=== PATIENT | female | born 1990 | race American Indian/Alaskan Native ===

== ENCOUNTER 2019-04-03 07:01 | Emergency (ER) | payer OTHER ==
[2019-04-03 07:25] VITALS: BP 121/95
[2019-04-03] MEDS ORDERED: HYDROcodone/ACETAMINOPHEN 5-325 MG TAB PO ONE (10:17)
[2019-04-03] MEDS ORDERED: IBUPROFEN 800 MG TAB PO ONE (10:17)
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
== END 2019-04-03 12:16 | disposition home or self-care (01) ==
LOC: ED 07:01
DX: S80.11XA Contusion of right lower leg, initial encounter (principal); V49.49XA Driver injured in collision with other motor vehicles in traffic accident, initial encounter; Y93.89 Activity, other specified; Y92.488 Other paved roadways as the place of occurrence of the external cause; Y99.8 Other external cause status
CPT/HCPCS: 99283

== ENCOUNTER 2019-05-12 15:50 | Emergency (ER) | payer OTHER ==
--- NOTE | 2019-05-12 18:05 | XRay Report ---
CHEST 2 VIEWS INDICATION / CLINICAL INFORMATION: MAIN: cough; Pt. c/o body aches, chills, NOEL and cough. X 1 DAY. COMPARISON: None available. FINDINGS: SUPPORT DEVICES: None. HEART / MEDIASTINUM: No significant abnormality. LUNGS / PLEURA: No significant pulmonary or pleural abnormality. No pneumothorax. ADDITIONAL FINDINGS: No significant additional findings. IMPRESSION: No significant abnormality Signer Name: Herbie Land MD FACMonica Signed: 05/12/2019 6:01 PM Workstation Name: [id number]
[2019-05-12] MEDS ORDERED: ONDANSETRON 4 MG/2 ML INJ IV ONE (20:42)
[2019-05-12] MEDS ORDERED: SODIUM CHLORIDE 0.9% 1000 ML 1,000 ML IV ONE ×2 (20:42→22:05)
[2019-05-12 21:28] LABS: Basophils % (Auto) 0.2 % (0.0-1.8); Eosinophils # (Auto) 0.1 K/mm3 (0.0-0.4); Eosinophils % (Auto) 0.4 % (0.0-4.3); Hematocrit 37.3 % (30.3-42.9); Hemoglobin 12.5 gm/dl (10.1-14.3); Lymphocytes # (Auto) 2.5 K/mm3 (1.2-5.4); Lymphocytes % (Auto) 13.3 % (13.4-35.0); Mean Corpuscular HGB Conc 34 % (30-34); Mean Corpuscular Volume 76 fl (79-97); Monocytes % (Auto) 5.6 % (0.0-7.3); Platelet Count 191 K/mm3 (140-440); Red Blood Count 4.93 M/mm3 (3.65-5.03); Red Cell Distribution Width 16.9 % (13.2-15.2)
[2019-05-12 21:56] LABS: Alanine Aminotransferase 16 units/L (7-56); Albumin 3.7 g/dL (3.9-5); BUN/Creatinine Ratio 13; Blood Urea Nitrogen 9 mg/dL (7-17); Calcium 9.2 mg/dL (8.4-10.2); Hemolysis Index 6
[2019-05-12] MEDS ORDERED: IBUPROFEN 800 MG TAB PO ONE (22:20)
--- NOTE | 2019-05-12 22:27 | Emergency Department Report ---
- General Chief Complaint: Upper Respiratory Infection Stated Complaint: FLU Time Seen by Provider: 05/12/19 20:39 Source: patient Mode of arrival: Ambulatory Limitations: No Limitations - History of Present Illness Initial Comments: Patient states flulike symptoms x3 days cough fevers chills malaise decreased appetite. She states nausea no vomiting, however no p.o. intake since yesterday. Patient states mild dizziness and palpitations. She denies cardiac history. There is no shortness of breath. Symptoms are exacerbated by activity. Symptoms are relieved by rest. MD Complaint: fever, cough, sore throat, rhinorrhea, nasal congestion, sinus sravan n, other (Abdominal Pain ) Onset/Timin -: days(s) Severity: moderate Severity scale (0 -10): 6 Quality: aching Consistency: constant Improves With: nothing Worsens With: activity Context: sick contacts Associated Symptoms: myalgias, headache, rhinorrhea, nasal congestion, sore throat, cough, abdominal pain, nausea. denies: vomiting, diarrhea, dysuria - Related Data Previous Rx's Medication Instructions Recorded Last Taken Type traMADoL [Ultram 50 MG tab] 50 mg PO Q8H PRN #16 tablet 12/27/12 Unknown Rx Docusate Sodium [Colace CAP] 100 mg PO BID #60 capsule 12/29/14 Unknown Rx Starch 51%(Nf) [Anusol] 1 each [place] Q8H #20 supp.rect 12/29/14 Unknown Rx metroNIDAZOLE [Flagyl] 500 mg PO Q12HR #20 tab 12/29/14 Unknown Rx Ondansetron [Zofran Odt] 4 mg PO Q8HR #30 tab.rapdis 02/21/16 Unknown Rx Cyclobenzaprine [Flexeril] 10 mg PO TID PRN #14 tablet 04/03/19 Unknown Rx HYDROcodone/APAP 5-325 [[place] 1 each PO Q6HR PRN #5 tablet 04/03/19 Unknown Rx 5/325] Ibuprofen [Motrin 800 MG tab] 800 mg PO Q8HR PRN #20 tablet 04/03/19 Unknown Rx Ibuprofen [Motrin 800 MG tab] 800 mg PO Q8HR PRN #30 tablet 05/13/19 Unknown Rx Nitrofurantoin [place]/M-Cryst 100 mg PO BID 7 Days #14 capsule 05/13/19 Unknown Rx [Macrobid CAP] Allergies Allergy/AdvReac Type Severity Reaction Status Date / Time latex Allergy Rash Verified 04/03/19 07:08 ED Review of Systems ROS: Stated complaint: FLU Other details as noted in HPI Constitutional: malaise. denies: chills, fever Eyes: denies: eye pain, eye discharge, vision change ENT: ear pain, throat pain, congestion Respiratory: cough. denies: shortness of breath, wheezing Cardiovascular: palpitations. denies: chest pain Endocrine: no symptoms reported Gastrointestinal: abdominal pain, nausea. denies: vomiting, diarrhea, constipation Genitourinary: denies: urgency, dysuria, frequency, hematuria, discharge Musculoskeletal: denies: back pain, joint swelling, arthralgia Skin: denies: rash, lesions Neurological: headache. denies: weakness, numbness, paresthesias, confusion, vertigo Psychiatric: denies: anxiety, depression Hematological/Lymphatic: denies: easy bleeding, easy bruising ED Past Medical Hx - Past Medical History Previous Medical History?: No - Surgical History Past Surgical History?: Yes Additional Surgical History: ovarian cyst removed/ C SECT - Social History Smoking Status: Current Every Day Smoker (1/7 pack per day) Substance Use Type: Alcohol - Medications Home Medications: Home Medications Medication Instructions Recorded Confirmed Last Taken Type traMADoL [Ultram 50 MG tab] 50 mg PO Q8H PRN #16 tablet 12/27/12 Unknown Rx Docusate Sodium [Colace CAP] 100 mg PO BID #60 capsule 12/29/14 Unknown Rx Starch 51%(Nf) [Anusol] 1 each SC Q8H #20 supp.rect 12/29/14 Unknown Rx metroNIDAZOLE [Flagyl] 500 mg PO Q12HR #20 tab 12/29/14 Unknown Rx Ondansetron [Zofran Odt] 4 mg PO Q8HR #30 tab.rapdis 02/21/16 Unknown Rx Cyclobenzaprine [Flexeril] 10 mg PO TID PRN #14 tablet 04/03/19 Unknown Rx HYDROcodone/APAP 5-325 [[place] 1 each PO Q6HR PRN #5 tablet 04/03/19 Unknown Rx 5/325] Ibuprofen [Motrin 800 MG tab] 800 mg PO Q8HR PRN #20 tablet 04/03/19 Unknown Rx Ibuprofen [Motrin 800 MG tab] 800 mg PO Q8HR PRN #30 tablet 05/13/19 Unknown Rx Nitrofurantoin [place]/M-Cryst 100 mg PO BID 7 Days #14 capsule 05/13/19 Unknown Rx [Macrobid CAP] ED Physical Exam - General Limitations: No Limitations General appearance: alert, in no apparent distress - Head Head exam: Present: atraumatic, normocephalic - Eye Eye exam: Present: normal appearance, PERRL, EOMI Pupils: Present: normal accommodation - ENT ENT exam: Present: mucous membranes moist, TM's normal bilaterally, normal external ear exam - Expanded ENT Exam Expanded Ear exam: Present: normal external inspection Throat exam: Positive: tonsillar erythema, other (uvula midline no exudate no lesions). Negative: tonsillomegaly, tonsillar exudate, R peritonsillar mass, L peritonsillar mass - Neck Neck exam: Present: normal inspection, tenderness, full ROM. Absent: meningismus, lymphadenopathy, thyromegaly - Respiratory Respiratory exam: Present: normal lung sounds bilaterally. Absent: respiratory distress, wheezes, stridor, chest wall tenderness, accessory muscle use, prolo nged expiratory - Cardiovascular Cardiovascular Exam: Present: normal rhythm, tachycardia, normal heart sounds. Absent: systolic murmur, diastolic murmur, rubs, gallop - GI/Abdominal GI/Abdominal exam: Present: soft, normal bowel sounds. Absent: distended, tenderness, guarding, rebound, rigid, bruit, hernia - Rectal Rectal exam: Present: deferred - Extremities Exam Extremities exam: Present: normal inspection, full ROM, normal capillary refill. Absent: tenderness - Back Exam Back exam: Present: normal inspection, full ROM. Absent: tenderness, CVA tenderness (R), CVA tenderness (L) - Neurological Exam Neurological exam: Present: alert, oriented X3, CN II-XII intact, normal gait, reflexes normal. Absent: motor sensory deficit - Psychiatric Psychiatric exam: Present: normal affect, normal mood - Skin Skin exam: Present: warm, dry, intact, normal color. Absent: rash ED Course Vital Signs 05/12/19 05/13/19 16:57 02:56 Temperature 98.1 F 98.9 F Pulse Rate 145 H 90 Respiratory 20 16 Rate Blood Pressure 128/91 Blood Pressure 120/87 [Right] O2 Sat by Pulse 99 99 Oximetry ED Medical Decision Making - Lab Data Result diagrams: 05/12/19 20:58 05/12/19 20:58 - EKG Data EKG shows normal: sinus rhythm Rate: normal, tachycardia - EKG Data When compared to previous EKG there are: previous EKG unavailable Interpretation: normal EKG (NS tach hr 105, No ST Elevated [place] ,ekg interp by ed attending ) - Radiology Data Radiology results: report reviewed, image reviewed Findings Reporting MD: Herbie Land Dictation Time: May 12, 2019 17:01 Rock Wool Applicator: Not available Turn Down Man Date: CHEST 2 VIEWS INDICATION / CLINICAL INFORMATION: MAIN: cough; Pt. c/o body aches, chills, NOEL and cough. X 1 DAY. COMPARISON: None available. FINDINGS: SUPPORT DEVICES: None. HEART / MEDIASTINUM: No significant abnormality. LUNGS / PLEURA: No significant pulmonary or pleural abnormality. No pneumothorax. ADDITIONAL FINDINGS: No significant additional findings. IMPRESSION: No significant abnormality Signer Name: Herbie Land MD FACR Signed: 05/12/2019 5:01 PM Workstation Name: [id number] - Medical Decision Making Symptoms improved with medications given in ED, there is no fever no nausea vomiting patient is currently tolerating p.o. hydration without symptoms, UA noted for leukocyte WBCs, CBC: wbc18.6, there is no fever or chills, Lung are clear throughout, CXr is normal, no infiltrate, no opacities. This is likely volume related as all symptoms are resolved with ivfs. Rapid strep and rapid flu cultures are negative. EKG normal sinus rhythm at this time, no ST elevated [place], EKG interpreted by ED attending, heart score is 0. Patient currently appears well and nontoxic, This is likely Viral Syndrome, Mild dehydration, pt will be dc'd to home with rx for macrobid, will continue to hydratew, and follow up with pcp in 2-3 day. Pt verbalized agreement and understanding of discharge plan. pt is currently a/o x 3, ambulatory with steady gait and nad. Critical care attestation.: If time is entered above; I have spent that time in minutes in the direct care of this critically ill patient, excluding procedure time. ED Disposition Clinical Impression: Viral syndrome, Dehydration UTI (urinary tract infection) Qualifiers: Urinary tract infection type: acute cystitis Hematuria presence: without hematuria Qualified Code(s): N30.00 - Acute cystitis without hematuria Disposition: TO HOME OR SELFCARE Is pt being admited?: No Does the pt Need Aspirin: No Condition: Stable Instructions: Dehydration (ED), Urinary Tract Infection in Women (ED), Viral Syndrome (ED) Prescriptions: Nitrofurantoin [place]/M-Cryst [Macrobid CAP] 100 mg PO BID 7 Days #14 capsule Ibuprofen [Motrin 800 MG tab] 800 mg PO Q8HR PRN #30 tablet PRN Reason: Pain , Severe (7-10) Referrals: SIVAN BASSETT MD [Staff Physician] - 3-5 Days Forms: Work/School Release Form(ED) Time of Disposition: 03:43
[2019-05-13] MEDS ORDERED: HYDROcodone/ACETAMINOPHEN 5-325 MG TAB PO ONE (02:54)
[2019-05-13 02:58] VITALS: BP 120/87
[2019-05-13 03:24] LABS: Bacteria,Urine 2+ /HPF (Negative); Bilirubin,Urine NEG (Negative); Blood,Urine SM (Negative); Color,Urine Amber (Yellow); Mucus,Urine 2+ /HPF
[2019-05-13 03:26] LABS: HCG Qualitative,Urine Negative (Negative)
== END 2019-05-13 04:16 | disposition home or self-care (01) ==
LOC: ED 15:50
DX: B34.9 Viral infection, unspecified (principal); E86.0 Dehydration; N39.0 Urinary tract infection, site not specified; F17.200 Nicotine dependence, unspecified, uncomplicated; Z98.890 Other specified postprocedural states; Z79.1 Long term (current) use of non-steroidal anti-inflammatories (NSAID); Z79.899 Other long term (current) drug therapy; Z91.040 Latex allergy status
CPT/HCPCS: 36415; 71046; 80053; 81001; 81025; 83690; 83735; 84484; 85025; 87086; 87116; 87400; 87430; 93005; 93010; 96361; 96374; 99284; J2405; J7030